=== PATIENT | female | born 1985 | race African-American/Black ===

== ENCOUNTER 2019-01-09 10:48 | Emergency (ER) | payer OTHER ==
[~2019-01-09] VITALS: Ht 162.6 cm; Wt 74.8 kg
--- OUTSIDE RECORDS SUMMARY | 2019-01-09 10:50 | XMS REPORT | Clinical Summary ---
Author Author Bliss Mormon Organization Loris [facility] Address Unknown Phone Unavailable Care Team Providers [employer] Installer Name Role Phone Pearl Romero MD PCP Allergies No Known Allergies Medications End Date Status Medication Sig Dispensed Refills Start Date 12/16/2019 Active norethindrone (AYGESTIN) Take 3 360 tablet 4 5 mg tablet tablets (15 9 mg total) by mouth daily. 02/03/2018 Discontinued norethindrone (AYGESTIN) Take 1 tablet 90 tablet 4 5 mg tablet (5 mg total) 8 by mouth daily. 03/30/2018 Discontinued norethindrone (AYGESTIN) Take 2 90 tablet 3 5 mg tablet tablets (10 8 mg total) by mouth daily. 03/30/2018 Discontinued norethindrone (AYGESTIN) Take 3 270 tablet 3 5 mg tablet tablets (15 8 mg total) by mouth daily. 08/09/2018 Discontinued norethindrone (AYGESTIN) Take 3 270 tablet 3 5 mg tablet tablets (15 8 mg total) by mouth daily. 08/09/2018 Discontinued ibuprofen (ADVIL,MOTRIN) Take 1 tablet 30 tablet 0 800 MG tablet (800 mg 8 total) by mouth every 8 (eight) hours as needed for moderate pain for up to 30 days. 07/27/2018 HYDROcodone-acetaminophen Take 1 tablet 15 tablet 0 (NORCO) 5-325 mg per by mouth 8 tablet every 6 (six) hours as needed for severe pain for up to 5 days. Max Daily Amount: 4 tablets 11/10/2018 Discontinued norethindrone (AYGESTIN) 0 5 mg tablet 9 12/16/2018 Discontinued norethindrone (AYGESTIN) Take 3 270 tablet 4 5 mg tablet tablets (15 9 mg total) by mouth daily. Active Problems Problem Noted Date Menorrhagia with regular cycle 11/10/2018 Metrorrhagia 06/17/2018 Iron deficiency anemia due to chronic blood loss 03/30/2018 fibroids--4cm intracavitary, 5cm posterior subserosal, IM 2.5cm 03/30/2018 ASCUS with positive high risk HPV cervical 11/26/2017 Plica syndrome of right knee 09/22/2017 Overview: Added automatically from request for surgery [id number] Resolved Problems Problem Noted Date Resolved Date Anemia affecting in first trimester 11/16/2017 03/30/2018 Encounters Care Team Description Date Type Specialty Sonia Babin MD 12/29/2018 Orders Only Obstetrics and Gynecology Sonia Babin MD Well woman exam with routine gynecological exam (Primary Dx); Screening for cervical cancer; Screening for HPV (human papillomavirus); Screen for sexually transmitted diseases; Metrorrhagia 12/16/2018 Office Visit Obstetrics and Gynecology Sonia Babin MD Menorrhagia with regular cycle (Primary Dx); fibroids--4cm intracavitary, 5cm posterior subserosal, IM 2.5cm 11/10/2018 Office Visit Obstetrics and Gynecology Sonia Babin MD fibroids--3-4cm intracavitary, 5cm posterior subserosal; Submucous leiomyoma of uterus 11/10/2018 Ancillary Obstetrics and Gynecology Procedure Sonia Babin MD fibroids--3-4cm intracavitary, 5cm posterior subserosal (Primary Dx) 08/09/2018 Office Visit Obstetrics and Gynecology Sonia Babin MD HYSTEROSCOPIC MYOMECTOMY WITH TRUCLEAR 07/27/2018 Surgery General Surgery Silke Huerta NP 07/27/2018 Anesthesia General Surgery Event Sonia Babin MD 07/27/2018 [facility] General Surgery Encounter Sonia Babin MD fibroids--3-4cm intracavitary, 5cm posterior subserosal (Primary Dx); Metrorrhagia; Iron deficiency anemia due to chronic blood loss 07/22/2018 Office Visit Obstetrics and Gynecology Sonia Babin MD Uterine leiomyoma, unspecified location (Primary Dx); Hypertension, unspecified type 07/22/2018 Pre-Admit Pre-Admission Testing Testing Appointment Sonia Babin MD 07/22/2018 Prep for Obstetrics and Gynecology Surgery Abel Velarde MD Primary osteoarthritis of right knee (Primary Dx) 06/23/2018 Office Visit Orthopedic Surgery Sonia Babin MD fibroids--3-4cm intracavitary, 5cm posterior subserosal (Primary Dx); Iron deficiency anemia due to chronic blood loss; Metrorrhagia 06/17/2018 Office Visit Obstetrics and Gynecology Sonia Babin MD 06/17/2018 Telephone Obstetrics and Gynecology Sonia Babin MD Submucous leiomyoma of uterus 06/09/2018 Ancillary Obstetrics and Gynecology Procedure Sonia Babin MD Iron deficiency anemia due to chronic blood loss (Primary Dx); Submucous leiomyoma of uterus 03/30/2018 Office Visit Obstetrics and Gynecology Devin Crawford MD S/P right knee surgery (Primary Dx) 03/18/2018 Office Visit Orthopedic Surgery Naomie Pinto MA 02/09/2018 Telephone Orthopedic Surgery Sonia Babin MD 02/03/2018 Orders Only Obstetrics and Gynecology Devin Crawford MD Aftercare following surgery (Primary Dx); Right anterior knee pain 01/28/2018 Office Visit Orthopedic Surgery after 01/08/2018 Family History Medical History Relation Name Comments No Known Problems Father Hypertension Maternal Aunt Kidney disease Maternal Grandfather Arthritis Maternal Grandmother Hypertension Maternal Grandmother Stroke Maternal Grandmother Hypertension Maternal Uncle Stroke Maternal Uncle Hypertension Mother No Known Problems Paternal Grandfather No Known Problems Paternal pt does not know paternal grandparents Grandmother Relation Name Status Comments Father Alive Maternal Aunt Maternal Grandfather Maternal Grandmother Maternal Uncle Mother Alive Paternal Grandfather Paternal Grandmother Sister Alive 3 Social History Date Tobacco Use Types Packs/Day Years Used Never Smoker Smokeless Tobacco: Never Used Alcohol Use Drinks/Week oz/Week Comments Yes occassionally 2 drinks up to 3 times a wk Sex Assigned at Date Recorded Not on file Industry Job Start Date Occupation Not on file Not on file Not on file Travel End Travel History Travel Start No recent travel history available. Last Filed Vital Signs Time Taken Vital Sign Reading 12/16/2018 8:00 AM CDT Blood Pressure 131/81 12/16/2018 8:00 AM CDT Pulse 103 07/27/2018 10:08 AM [facility] Temperature 36.7 C (98 F) 07/27/2018 10:08 AM [facility] Respiratory Rate 16 07/27/2018 9:51 AM [facility] Oxygen Saturation 96% - Inhaled Oxygen - Concentration 12/16/2018 8:00 AM CDT Weight 75.3 kg (166 lb) 12/16/2018 8:00 AM CDT Height 162.6 cm (5' 4") 12/16/2018 8:00 AM CDT Body Mass Index 28.49 Plan of Treatment Care Team Description [place] [address] [address] [address] [place], [place] [id number] 01/17/2019 Procedure visit Obstetrics and Gynecology Sonia Babin MD [id number] [place] [address] [address] [place], [place] [id number] 02/08/2019 Ancillary Obstetrics [place] [id number] [facility] [address] [place], [place] [id number] 02/08/2019 Office Visit Obstetrics and Gynecology Health Maintenance Due Date Last Done Comments INFLUENZA VACCINE 04/14/2019 CERVICAL CANCER SCREENING 12/16/2021 12/16/2018, 11/12/2017 Procedures Comments Procedure Name Priority Date/Time Associated Diagnosis PAP IG, HPV-HR Routine 12/29/2018 HIV 1/2 ANTIGEN/ANTIBODY, Routine 12/16/2018 FOURTH GENERATION W/RFL 8:15 AM CDT (REFLEX [facility]) RPR SCREEN Routine 12/16/2018 Screen for sexually 8:15 AM CDT transmitted diseases HEPATITIS C ANTIBODY Routine 12/16/2018 Screen for sexually 8:15 AM CDT transmitted diseases HEPATITIS B SURFACE Routine 12/16/2018 Screen for sexually ANTIGEN 8:15 AM CDT transmitted diseases CBC HEMOGRAM Routine 12/16/2018 Metrorrhagia 8:15 AM CDT HPV MRNA E6/E7 Routine 12/16/2018 8:08 AM CDT TRICHOMONAS VAGINALIS Routine 12/16/2018 RNA, QUALITATIVE, TMA, 8:08 AM CDT PAP VIAL CHLAMYDIA/N. GONORRHOEAE Routine 12/16/2018 RNA, TMA 8:08 AM CDT THINPREP TIS PAP REFLEX Routine 12/16/2018 HPV MRNA E6/E7 8:08 AM CDT CBC HEMOGRAM Routine 11/10/2018 Menorrhagia with regular 3:46 PM [facility] cycle fibroids--4cm intracavitary, 5cm posterior subserosal, IM 2.5cm US PELVIC TRANSVAGINAL Routine 11/10/2018 Submucous leiomyoma of 3:19 PM [facility] uterus SURGICAL PATHOLOGY Routine 07/27/2018 REQUEST 10:44 AM [facility] W[place] AN ELECTIVE Routine 07/27/2018 SUPRAGLOTTIC AIRWAY 7:33 AM [facility] Procedure Note - Alfredo Martins CRNA - 07/27/2018 7:33 AM [facility] ANESTHESIA INTUBATION Performed by: Alfredo Martins CRNA Authorized by: Hussein Theodore MD Location: OR Urgency: Elective Difficult Airway: No Resident/C RNA/AA: Alfredo Martins CRNA Preoxygena howard with 100% O2: Yes C-spine Precaution s Maintained Throughout : Yes Mask Ventilatio n: Not attempted Final Airway Type: Supraglott ic airway Final LMA: Unique LMA Size: 4 Number of Attempts at Approach: 1 MYOMECTOMY, UTERINE, 07/27/2018 N92.0 HYSTEROSCOPIC 7:30 AM [facility] Special Needs TRUCLEAR (MAKENZIE ) /NO ASSIST/KD ECG 12-LEAD Routine 07/22/2018 Uterine leiomyoma, 11:37 AM [facility] unspecified location Hypertension, unspecified type HC COMPLETE BLD COUNT Routine 07/22/2018 Uterine leiomyoma, W/AUTO DIFF 10:38 AM [facility] unspecified location Hypertension, unspecified type HCG QUALITATIVE, SERUM Routine 07/22/2018 Uterine leiomyoma, SCREEN 10:38 AM [facility] unspecified location [place] ARTHROCENTESIS Routine 06/23/2018 Primary osteoarthritis of ASPIR&/INJ MAJOR JT/BURSA 8:40 AM CDT right knee W/O US US PELVIC TRANSVAGINAL Routine 06/09/2018 Submucous leiomyoma of 4:08 PM CDT uterus FOLATE LEVEL Routine 06/08/2018 Iron deficiency anemia 4:06 PM CDT due to chronic blood loss VITAMIN B12 LEVEL Routine 06/08/2018 Iron deficiency anemia 4:06 PM CDT due to chronic blood loss TOTAL IRON BINDING Routine 06/08/2018 Iron deficiency anemia CAPACITY 4:06 PM CDT due to chronic blood loss FERRITIN LEVEL Routine 06/08/2018 Iron deficiency anemia 4:06 PM CDT due to chronic blood loss CBC HEMOGRAM Routine 06/08/2018 Iron deficiency anemia 4:06 PM CDT due to chronic blood loss FERRITIN LEVEL Routine 03/11/2018 Iron deficiency anemia 3:50 PM CDT due to chronic blood loss TOTAL IRON BINDING Routine 03/11/2018 Iron deficiency anemia CAPACITY 3:50 PM CDT due to chronic blood loss CBC HEMOGRAM Routine 03/11/2018 Iron deficiency anemia 3:50 PM CDT due to chronic blood loss after 01/08/2018 Results * Pap IG, HPV-hr (12/29/2018) Specimen Swab Narrative Performed At * HIV 1/2 ANTIGEN/ANTIBODY, FOURTH GENERATION W/RFL (REFLEX [facility]) (12/16/2018 8:15 AM CDT) HIV AG/AB 4th gen NON-REACTIVE NON-REACTIVE [facility] Comment: [facility] HIV-1 antigen and HIV-1/HIV-2 antibodies were not detected. There is no laboratory evidence of HIV infection. PLEASE NOTE: This information has been disclosed to you from records whose confidentiality may be protected by state law.If your state requires such protection, then the state law prohibits you from making any further disclosure of the information without the specific written consent of the person to whom it pertains, or as otherwise permitted by law. A general authorization for the release of medical or other information is NOT sufficient for this purpose. For additional information please refer to http://education.Medio/faq/QOV828 (This link is being provided for informational/ educational purposes only.) The performance of this assay has not been clinically validated in patients less than 2 years old. Resulting Agency Comment Performing Organization Information: Site ID: [id number] Name: [facility] Address: [address] [place] [address] Director: Mirtha Dove Performing Organization Address City/[facility] [place] [address] * Hepatitis C antibody (12/16/2018 8:15 AM CDT) Hepatitis C Ab NON-REACTIVE NON-REACTIVE [facility] Signal/cutoff 0.02 <1.00 [facility] Comment: [facility] HCV antibody was non-reactive. There is no laboratory evidence of HCV infection. In most cases, no further action is required. However, if recent HCV exposure is suspected, a test for HCV RNA (test code 99354) is suggested. For additional information please refer to http://education.Foound.Morningside [employer]/faq/CYE05g0 (This link is being provided for informational/ educational purposes only.) Specimen Blood Resulting Agency Comment Performing Organization Information: Site ID: [id number] Name: [facility] Address: [address] [place] [phone] Director: Mirtha Dove Performing Organization Address [facility] [place] [address] * RPR screen (12/16/2018 8:15 AM CDT) RPR (monitor) w/refl NON-REACTIVE NON-REACTIVE [facility] Specimen Blood Resulting Agency Comment Performing Organization Information: Site ID: [id number] Name: [facility] Address: [address] [place] [phone] Director: Mirtha Dove Performing Organization Address City/[facility] Cliniccomi Phone Number RE[facility] [address] [address] * Hepatitis B surface antigen (12/16/2018 8:15 AM CDT) Hepatitis B surface Ag NON-REACTIVE NON-REACTIVE [facility] Specimen Blood Resulting Agency Comment Performing Organization Information: Site ID: [id number] Name: [facility] Address: [address] [place] [phone] Director: Mirtha Dove Performing Organization Address [facility] Phone Number REH [address] [address] * CBC hemogram (12/16/2018 8:15 AM CDT) Only the most recent of 4 results within the time period is included. WBC 3.4 (L) 3.8 - 10.8 Thousand/uL [facility] RBC 4.56 3.80 - 5.10 Million/uL [facility] HGB 12.8 11.7 - 15.5 g/dL [facility] HCT 40.8 35.0 - 45.0 % [facility] MCV 89.5 80.0 - 100.0 fL [facility] MCH 28.1 27.0 - 33.0 pg [facility] MCHC 31.4 (L) 32.0 - 36.0 g/dL [facility] RDW 15.8 (H) 11.0 - 15.0 % [facility] Platelet count 378 140 - 400 Thousand/uL [facility] MPV 9.4 7.5 - 12.5 fL [facility] Specimen Blood Resulting Agency Comment Performing Organization Information: Site ID: [id number] Name: [facility] Address: [address] [place] [phone] Director: Mirtha Dove Performing Organization Address [facility] Phone Number REH [address] [address] * Trichomonas vaginalis RNA, Qualitative, TMA, PAP Vial (12/16/2018 8:08 AM CDT) Trichomonas vaginalis, ql NOT DETECTED NOT DETECTED [facility] tma, pap vial Comment: [facility] This test was performed using II the APTIMA(R) Trichomonas vaginalis assay (Gen-Probe(R)). For more information on this test, go to: http://education.Foound.com/faq/Trichomonastma The performance characteristics of this assay when used to test SurePath(R) specimens have been determined by [facility]. Performance characteristics refer to the analytical performance of this test. Resulting Agency Comment Performing Organization Information: Site ID: [id number] [facility]: [facility] Address: [address] [place] [phone] Director: Dr. Trace Davis Performing Organization Address [facility] Cliniccode Phone Number REH[address] [address] II * HPV mRNA E6/E7 (12/16/2018 8:08 AM CDT) HPV mRNA e6/e7 Not Detected Not Detected [facility] Comment: [facility] This test was performed using II the APTIMA HPV Assay ([employer] Inc.). This assay detects E6/E7 viral messenger RNA (mRNA) from 14 high-risk HPV types (16,18,31,33,35,39,45,51,52,56 ,58,59,66,68). The analytical performance characteristics of this assay have been determined by [facility]. The modifications have not been cleared or approved by the FDA. This assay has been validated pursuant to the CLIA regulations and is used for clinical purposes. Resulting Agency Comment Performing Organization Information: Site ID: [id number] Name: [facility] Address: [address] [place] [phone] Director: Dr. Trace Davis Performing Organization Address [facility] Cliniccode Phone Number REH[address] [address] II * CHLAMYDIA/N. GONORRHOEAE RNA, TMA (12/16/2018 8:08 AM CDT) Chlamydia trachomatis NOT DETECTED NOT DETECTED [facility] RNA, TMA [facility] II Neisseria gonorrhoeae NOT DETECTED NOT DETECTED [facility] RNA, TMA [facility] II (Always message) Comment: [facility] This test was performed using [employer] the APTIMA COMBO2 Assay II ([employer]poseMatch (formerly [employer] Inc[employer] The analytical performance characteristics of this assay, when used to test SurePath specimens have been determined by [facility]. Resulting Agency Comment Performing Organization Information: Site ID: [id number] Name: [facility] Address: [address] [place] [phone] Director: Dr. Trace Davis Performing Organization Address City/[facility] Cliniccode Phone Number JAILENE DENT [employer]-[address] [address] II * THINPREP TIS PAP REFLEX HPV mRNA E6/E7 (12/16/2018 8:08 AM CDT) Clinical information None given [facility] Date of last menstrual NONE GIVEN [facility] period Prev. pap: NONE GIVEN [facility] Prev. bx: NONE GIVEN [facility] Source Cervix [facility] Statement of adequacy Comment: [facility] Satisfactory for evaluation. Endocervical/transformation zone component present. Age and/or menstrual status not provided General categorization (A)Comment: EPITHELIAL CELL [facility] ABNORMALITY Interpretation/result: (A) [facility] Comment: Atypical Squamous Cells of Undetermined Significance (ASC-US) Comment Comment: [facility] This Pap test has been evaluated with computer assisted technology. Suggest clinical correlation and follow-up as clinically appropriate [employer] Comment: [facility] ABS, CT(ASCP) CT screening location: [place] [id number] Pathologist Comment: [facility] Jt Escamilla M.D. Board Certified in Anatomic and Clinical Pathology [phone] (electronic signature) Comment Comment: [facility] EXPLANATORY NOTE: The Pap is a screening test for cervical cancer. It is not a diagnostic test and is subject to false negative and false positive results. It is most reliable when a satisfactory sample, regularly obtained, is submitted with relevant clinical findings and history, and when the Pap result is evaluated along with historic and current clinical information. Resulting Agency Comment Performing Organization Information: Site ID: [id number] Name: [facility] Address: [address] [place] [address], [facility] [place] [address] Director: Stephanie Pascual MD,PhD Performing Organization Address City/State/Zipcode Phone Number [facility] * US Pelvic Transvaginal (11/10/2018 3:19 PM [facility]) Only the most recent of 2 results within the time period is included. Narrative Performed At [facility] ANTEVERTED UT=9 X 6 X 5 CM ENDO [place] DUE TO SM FIBROID SHADOWING ROMELIA=3 X 3 X 2 CM ROMELIA SIMPLE CYST=1.9 X 2.0 CM ROV=NSW TRV OR ABD FIB 1 - SM - WITHIN ENDO=3.7 X 4.0 CM FIB 2 - RT POST UT - SS=4.5 X 5.0 CM FIB 3 - LT POST UT - IM=2.5 X 1.3 CM Reviewed with patient. Sonia Babin MD Performing Organization Address [facility]code Phone Number [facility] [address] [place] [address] * Surgical pathology request (07/27/2018 10:44 AM [facility]) [facility] DEPARTMENT OF PATHOLOGY AND GENOMIC MEDICINE Surgical pathology report See link below for PDF Lab [facility] DEPARTMENT OF Report PATHOLOGY AND GENOMIC MEDICINE Result status This is Final Report for [facility] DEPARTMENT OF [id number] PATHOLOGY AND GENOMIC MEDICINE Performing Organization Address [facility] Phone Number [facility] [address] [facility] [place] [address] PATHOLOGY AND GENOMIC MEDICINE * ECG 12 lead (07/22/2018 11:37 AM [facility]) Ventricular rate 78 [facility]USE Atrial rate 78 [facility] MUSE WY interval 152 [facility] QRSD interval 76 [facility] QT interval 350 [facility] QTC interval 399 [facility] P axis 1 47 [facility] QRS axis 1 17 [facility] T wave axis 50 [facility] EKG impression Normal sinus rhythm-Normal [facility] MUSE ECG-- Performing Organization Address [facility] Phone Number [facility] [address] [place] [address] * CBC with platelet and differential (07/22/2018 10:38 AM [facility]) WBC 4.3 (L) 4.5 - 11.0 k/uL [facility] DEPARTMENT OF PATHOLOGY AND GENOMIC MEDICINE RBC 4.22 4.20 - 5.50 M/uL [facility] DEPARTMENT OF PATHOLOGY AND GENOMIC MEDICINE HGB 11.4 (L) 14.0 - 18.0 g/dL [facility] DEPARTMENT OF PATHOLOGY AND GENOMIC MEDICINE HCT 36.8 (L) 37.0 - 47.0 % [facility] DEPARTMENT OF PATHOLOGY AND GENOMIC MEDICINE MCV 87.2 82.0 - 100.0 fL [facility]OLOGY AND GENOMIC MEDICINE MCH 27.0 27.0 - 34.0 pg [facility] DEPARTMENT OF PATHOLOGY AND GENOMIC MEDICINE MCHC 31.0 31.0 - 37.0 g/dL [facility] DEPARTMENT OF PATHOLOGY AND GENOMIC MEDICINE RDW - SD 46.4 37.0 - 55.0 fL [facility] DEPARTMENT OF PATHOLOGY AND GENOMIC MEDICINE MPV 9.3 8.8 - 13.2 fL [facility] DEPARTMENT OF PATHOLOGY AND GENOMIC MEDICINE Platelet count 405 (H) 150 - 400 K/uL [facility] DEPARTMENT OF PATHOLOGY AND GENOMIC MEDICINE Nucleated RBC 0.00 /100 WBC [facility] DEPARTMENT OF PATHOLOGY AND GENOMIC MEDICINE Neutrophils 47.6 39.0 - 69.0 % [facility] DEPARTMENT OF PATHOLOGY AND GENOMIC MEDICINE Lymphocytes 36.6 25.0 - 45.0 % [facility] DEPARTMENT OF PATHOLOGY AND GENOMIC MEDICINE Monocytes 10.7 (H) 0.0 - 10.0 % [facility] DEPARTMENT OF PATHOLOGY AND GENOMIC MEDICINE Eosinophils 4.0 0.0 - 5.0 % [facility] DEPARTMENT OF PATHOLOGY AND GENOMIC MEDICINE Basophils 0.9 0.0 - 1.0 % [facility] DEPARTMENT OF PATHOLOGY AND GENOMIC MEDICINE Immature granulocytes 0.2Comment: "Immature 0.0 - 1.0 % [facility] DEPARTMENT OF granulocytes" (promyelocytes, PATHOLOGY AND myelocytes, metamyelocytes) GENOMIC MEDICINE Specimen Blood Performing Organization Address City/[facility] Phone Number [address] [place] [address] PATHOLOGY AND GENOMIC MEDICINE * hCG qualitative, serum screen (07/22/2018 10:38 AM [facility]) hCG qualitative, serum NegativeComment: Sensitivity: [facility] DE[facility]MENT OF 10 mlUhCG/mL in Serum PATHOLOGY AND GENOMIC MEDICINE Specimen Blood Performing Organization Address City/[facility] Phone Number [address] [place] [address] PATHOLOGY AND GENOMIC MEDICINE * Large Joint Arthrocentesis (06/23/2018 8:40 AM CDT) Narrative Performed At Abel Velarde MD 06/26/20187:11 PM Large Joint Arthrocentesis Consent given by: patient Site marked: site marked Timeout: Immediately prior to procedure a time out was called to verify the correct patient, procedure, equipment, dealer support technician and site/side marked as required Supporting Documentation Indications: pain Procedure Details Preparation: Patient was prepped and draped in the usual sterile fashion Location: knee - R knee Right side: Needle size: 22 G Approach: anterolateral Right knee medications administered: 6 mg betamethasone acetate & sodium phosphate 6 mg/mL; 2 mL lidocaine 10 mg/mL (1 %) Patient tolerance: patient tolerated the procedure well with no immediate complications * Total iron binding capacity (06/08/2018 4:06 PM CDT) Only the most recent of 2 results within the time period is included. Iron level 49 40 - 190 mcg/dL [facility] Iron binding capacity 507 (H) 250 - 450 mcg/dL (calc) [facility] Iron saturation 10 (L) 11 - 50 % (calc) [facility] Specimen Blood Resulting Agency Comment Performing Organization Information: Site ID: [id number] Name: [facility] Address: [address] [place] [id number] Director: Mirtha Dove Performing Organization Address [facility] [place] [address] * Folate level (06/08/2018 4:06 PM CDT) Folate 14.3 ng/mL [facility] Comment: [facility] Reference Range Low: <3.4 Borderline:3.4-5.4 Normal:>5.4 Specimen Blood Resulting Agency Comment Performing Organization Information: Site ID: RGA Name: [facility] Address: [address] [place] [id number] Director: Mirtha Dove Performing Organization Address [facility] [place] [address] * Ferritin level (06/08/2018 4:06 PM CDT) Only the most recent of 2 results within the time period is included. Ferritin level 11 10 - 154 ng/mL [facility] Specimen Blood Resulting Agency Comment Performing Organization Information: Site ID: RGA Name: [facility] Address: [address] [place] [phone] Director: Mirtha Dove Performing Organization Address [facility] Phone Number [facility] [address] [place] [phone] * Vitamin B12 level (06/08/2018 4:06 PM CDT) Vitamin B12 564 200 - 1,100 pg/mL [facility] Specimen Blood Resulting Agency Comment Performing Organization Information: Site ID: RGA Name: [facility] Address: [address] [place] [phone] Director: Mirtha Dove Performing Organization Address [facility] Phone Number [facility] [address] [place] [phone] after 01/08/2018 Insurance Payer Benefit Subscriber ID Type Phone Address Plan / Group xxxxxxxxx [facility] Advance Directives Patient has advance care planning documents on file. For more information, katty weber contact: Izaiah Tinajero [address] [place] [address]
[2019-01-09] MEDS ORDERED: ONDANSETRON HCL INJ 2MG/ML 2ML 2 MG/ML VIAL IV STA (10:53)
[2019-01-09] MEDS ORDERED: SODIUM CHLORIDE 0.9% 1000ML 1,000 ML IV STA ×2 (10:53→12:55)
[2019-01-09 11:15] LABS: BASOPHILS % 0.3 % (0.0-1.0); EOSINOPHILS % 0.2 % (0.0-6.0); HEMOGLOBIN 11.2 g/dL (12.0-16.0); LYMPHOCYTES # (AUTO) 0.6 (1.0-3.2); LYMPHOCYTES % 6.5 % (18.0-39.1); MEAN CORPUSCULAR HEMOGLOBIN 28.6 pg (28-32); MEAN CORPUSCULAR HGB CONC 33.9 g/dL (31-35); MEAN CORPUSCULAR VOLUME 84.2 fL (81-99); MONOCYTES # (AUTO) 0.4 (0.2-0.8); MONOCYTES % 4.4 % (4.4-11.3); NEUTROPHILS # (AUTO) 7.7 (2.1-6.9); NEUTROPHILS % 88.4 % (38.7-80.0); PLATELET COUNT 324 x10e3/uL (140-360); RED BLOOD COUNT 3.92 x10e6/uL (3.6-5.1); RED CELL DISTRIBUTION WIDTH 16.4 % (11.7-14.4)
[2019-01-09 11:28] LABS: ALANINE AMINOTRANSFERASE 18 IU/L (0-55); ALKALINE PHOSPHATASE 68 IU/L (40-150); ANION GAP 18.3 mmol/L (8-16); BLOOD UREA NITROGEN 9 mg/dL (7-26); BUN/CREATININE RATIO 10 (6-25); CARBON DIOXIDE 21 mmol/L (22-29); CHLORIDE 105 mmol/L (98-107); CREATINE KINASE 267 IU/L (29-168); EST GLOMERULAR FILTRATION RATE > 60 ML/MIN (60-); GLUCOSE 93 mg/dL (74-118); POTASSIUM 4.3 mmol/L (3.5-5.1); SODIUM 140 mmol/L (136-145)
[2019-01-09] MEDS ORDERED: HYDRALAZINE HCL 20 MG/ML VIAL IV ONE (11:30)
[2019-01-09] MEDS ORDERED: HYDROCODONE/APAP 10MG-325MG TAB PO ONE (11:30)
[2019-01-09 12:04] LABS: CLARITY,URINE CLEAR (CLEAR); COLOR,URINE YELLOW (YELLOW)
[2019-01-09 12:05] LABS: BILIRUBIN,URINE NEGATIVE (NEGATIVE); KETONES,URINE TRACE (NEGATIVE); LEUKOCYTE ESTERASE ,URINE NEGATIVE (NEGATIVE); NITRITE,URINE NEGATIVE (NEGATIVE); PROTEIN,URINE DIPSTICK TRACE (NEGATIVE); URINE UROBILINOGEN 0.2 mg/dL (0.2 - 1)
[2019-01-09 12:17] LABS: BACTERIA,URINE FEW /HPF; EPITHELIAL CELLS,URINE FEW /LPF; RENAL EPITHELIAL CELLS,URINE RARE; TRANSITIONAL EPI CELLS,URINE RARE
[2019-01-09 12:58] LABS: PREGNANCY TEST, URINE NEGATIVE (NEGATIVE)
[2019-01-09 14:10] VITALS: BP 162/95
== END 2019-01-09 14:14 | disposition home or self-care (01) ==
LOC: ER 10:48
DX: R55 Syncope and collapse (principal); R51 Headache; R53.1 Weakness; D64.9 Anemia, unspecified
CPT/HCPCS: 36415; 80053; 81001; 81025; 82550; 82553; 82948; 84484; 85025; 87086; 93005; 99283; J0360; J2405; J7030